=== PATIENT | female | born 1985 | race African-American/Black ===

== ENCOUNTER 2021-03-31 11:03 | Emergency (ER) | payer OTHER ==
[~2021-03-31] VITALS: Ht 162.6 cm; Wt 108.9 kg
[2021-03-31 12:54] VITALS: BP 138/80
== END 2021-03-31 12:54 | disposition home or self-care (01) ==
LOC: ER 11:03
DX: U07.1 COVID-19 (principal); B19.20 Unspecified viral hepatitis C without hepatic coma; F12.90 Cannabis use, unspecified, uncomplicated